=== PATIENT | female | born 1970 | race Caucasian/White ===

== ENCOUNTER 2016-11-18 07:44 | Emergency (ER) | payer OTHER ==
[~2016-11-18] VITALS: Ht 157.5 cm; Wt 65.9 kg
[2016-11-18] MEDS ORDERED: LEVO125T3 PO (07:54)
[2016-11-18] MEDS ORDERED: ATEN100T PO (07:54)
[2016-11-18] MEDS ORDERED: ZOLO50TA PO (07:54)
[2016-11-18] MEDS ORDERED: ASPIRIN 81 MG CHEW TABLET PO ONE (08:30)
--- NOTE | 2016-11-18 09:55 | REP ---
TWO VIEW CHEST: Two views of the chest are performed. There is no prior study for comparison. There is mild atelectasis or infiltrate in the left lower lobe. Right lung is clear. Heart is normal in size. Mediastinal silhouette is unremarkable. IMPRESSION: Mild left lower lobe atelectasis/infiltrate. Signed by Crow Arias MD 11/18/2016 01:47 P
[2016-11-18 10:27] LABS: MEAN CORPUSCULAR HEMOGLOBIN 30.1 pg (27.0-33.0); MEAN CORPUSCULAR HGB CONC 34.2 g/dl (32.0-36.5); MEAN CORPUSCULAR VOLUME 87.9 fl (80.0-96.0); WHITE BLOOD COUNT 9.5 K/mm3 (4.0-10.0)
[2016-11-18 10:29] LABS: ANION GAP 9 MEQ/L (8-16); BLOOD UREA NITROGEN 13 MG/DL (7-18); CALCIUM LEVEL 9.3 MG/DL (8.5-10.1); CARBON DIOXIDE LEVEL 25 MEQ/L (21-32); CHLORIDE LEVEL 101 MEQ/L (98-107); GLOMERULAR FILTRATION RATE > 60.0 (>58); GLUCOSE, FASTING 92 MG/DL (70-105); POTASSIUM SERUM 3.7 MEQ/L (3.5-5.1); SODIUM LEVEL 135 MEQ/L (136-145)
[2016-11-18 11:06] LABS: EOSINOPHILS 4 % (0-5)
[2016-11-18] MEDS ORDERED: AUGM500T34 PO (12:13)
[2016-11-18 12:30] VITALS: BP 123/81
--- NOTE | 2016-11-19 16:05 | ECGEPIP ---
Stationary ECG Study [facility] - ED Test Date: 2016-11-18 Pat Name: ANGELICA MOMIN Department: Room: - Gender: F Member Service Representative: jerad : 1970 Requested By: Gabe Cullen Order Number: [id number] Reading MD: Annamarie Wilde Measurements Intervals [place] Rate: 70 P: 66 DE: 175 QRS: 73 QRSD: 84 T: -18 QT: 374 QTc: 405 Interpretive Statements SINUS RHYTHM LOW QRS VOLTAGE IN PRECORDIAL LEADS NONSPECIFIC ST & T-WAVE ABNORMALITY DELAYED R PROGRESSION NO PRIOR FOR COMPARISON Electronically Signed On 11-19-2016 16:04:49 EDT by Annamarie Wilde
== END 2016-11-18 12:37 | disposition home or self-care (01) ==
LOC: M ED 08:07
DX: J18.1 Lobar pneumonia, unspecified organism (principal); Z91.14 Patient's other noncompliance with medication regimen; I34.1 Nonrheumatic mitral (valve) prolapse; I10 Essential (primary) hypertension; E03.9 Hypothyroidism, unspecified; F32.9 Major depressive disorder, single episode, unspecified; F17.200 Nicotine dependence, unspecified, uncomplicated

== ENCOUNTER → 2016-12-03 | Outpatient (CLI) | payer OTHER ==
[~2016-12-03] MED LIST: ATEN100T PO; AUGM500T34 PO; LEVO125T4 PO; ZOLO50TA PO
--- NOTE | 2016-12-04 06:52 | REP ---
Chest x-ray: Two views. History: Follow-up pneumonia. Comparison chest x-ray November 18, 2016. Findings: The infiltrate previously noted in the left lower lobe is much improved. There is some residual nodular pulmonary opacity in the left base. Lungs are better aerated. No other infiltrate is seen. Pleural angles are sharp. Cardiomediastinal silhouette is unremarkable. Impression: Incomplete resolution left lower lobe infiltrate. Somewhat nodular density persists. Follow-up chest radiograph recommended in 4 weeks. Otherwise no active disease. Signed by Jorje Marquis MD 12/04/2016 07:58 A
== END ==
LOC: M RAD 18:25
PROVIDERS: ATTEND Internal Medicine Cardiovascular Disease
DX: J18.9 Pneumonia, unspecified organism (principal)

== ENCOUNTER → 2016-12-14 | Outpatient (REF) | payer OTHER | LOC: M SFHCLERA 18:57 | PROVIDERS: ATTEND Physician Assistant Medical | DX: J40 Bronchitis, not specified as acute or chronic (principal) ==

== ENCOUNTER → 2017-04-23 | Outpatient (CLI) | payer OTHER ==
[2017-04-23 13:25] LABS: FREE T4 1.98 NG/DL (0.76-1.46)
== END ==
LOC: M LABNEURO 08:38
PROVIDERS: ATTEND Nurse Practitioner Family
DX: E03.9 Hypothyroidism, unspecified (principal)

== ENCOUNTER → 2017-05-08 | Outpatient (REF) | payer OTHER | LOC: M SFHCLERA 10:04 | PROVIDERS: ATTEND Nurse Practitioner Family | DX: J06.9 Acute upper respiratory infection, unspecified (principal) ==

== ENCOUNTER 2017-09-21 11:48 | Emergency (ER) | payer OTHER | END 2017-09-21 14:29 | disposition left against medical advice (07) | LOC: M ED 11:48 | DX: Z53.21 Procedure and treatment not carried out due to patient leaving prior to being seen by health care provider (principal) ==

== ENCOUNTER → 2020-05-10 | Outpatient (CLI) | payer SELFPAY ==
[~2020-05-10] MED LIST changes: +LEXA5TAB13 PO
== END ==
LOC: M LABSMTC 12:36
PROVIDERS: ATTEND Pediatrics
DX: Z20.828 Contact with and (suspected) exposure to other viral communicable diseases (principal)

== ENCOUNTER → 2020-09-04 | Outpatient (REF) | LOC: M LABSMTC 11:04 | PROVIDERS: ATTEND Pediatrics | DX: Z11.52 Encounter for screening for COVID-19 (principal) ==

== ENCOUNTER → 2021-07-24 | Outpatient (REF) | LOC: M LABSMTC 09:21 | PROVIDERS: ATTEND Family Medicine | DX: Z20.822 Contact with and (suspected) exposure to COVID-19 (principal) ==

== ENCOUNTER → 2022-07-28 | Outpatient (REF) | LOC: M LABSMTC 09:16 | PROVIDERS: ATTEND Family Medicine | DX: Z11.52 Encounter for screening for COVID-19 (principal) ==

== ENCOUNTER → 2025-05-19 | Outpatient (CLI) | payer BC | LOC: M EKG 07:37 | PROVIDERS: ATTEND Nurse Practitioner Family | DX: I47.10 Supraventricular tachycardia, unspecified (principal) ==